=== PATIENT | male | born 2000 | race Caucasian/White ===

== ENCOUNTER 2021-04-04 22:55 | Emergency (ER) | payer OTHER ==
[~2021-04-04] VITALS: Ht 175.3 cm; Wt 99.8 kg
[2021-04-04 23:13] VITALS: BP 124/59
[2021-04-05] MEDS ORDERED: LIDOCAINE MPF 1% 10 MG/ML VIAL INJ ONE (00:10)
[2021-04-05 02:03] VITALS: BP 122/60
== END 2021-04-05 02:03 | disposition home or self-care (01) ==
LOC: MED 22:55
DX: S61.217A Laceration without foreign body of left little finger without damage to nail, initial encounter (principal); J45.909 Unspecified asthma, uncomplicated; W45.8XXA Other foreign body or object entering through skin, initial encounter; Y93.89 Activity, other specified; Y92.89 Other specified places as the place of occurrence of the external cause; Y99.8 Other external cause status
CPT/HCPCS: 12002; 73120; 99283; J2001

== ENCOUNTER 2021-04-07 15:11 | Emergency (ER) | payer OTHER ==
[~2021-04-07] VITALS: Ht 175.3 cm; Wt 99.8 kg
[2021-04-07 15:20] VITALS: BP 133/80
[2021-04-07 15:41] VITALS: BP 133/80
--- NOTE | 2021-04-07 15:42 | NUR ---
Patient discharged with v/s stable. Written and verbal after care instructions given and explained regarding wound care. Patient verbalized understanding. Ambulatory with steady gait. All questions addressed prior to discharge. Advised to follow up with PMD.
== END 2021-04-07 15:42 | disposition home or self-care (01) ==
LOC: MED 15:11
DX: S61.213D Laceration without foreign body of left middle finger without damage to nail, subsequent encounter (principal); S61.217D Laceration without foreign body of left little finger without damage to nail, subsequent encounter; J45.909 Unspecified asthma, uncomplicated; X58.XXXD Exposure to other specified factors, subsequent encounter
CPT/HCPCS: 99281

== ENCOUNTER 2021-04-18 13:47 | Emergency (ER) | payer OTHER ==
[~2021-04-18] VITALS: Ht 175.3 cm; Wt 95.3 kg
[2021-04-18 13:58] VITALS: BP 133/56
--- NOTE | 2021-04-18 14:50 | NUR ---
PT TAKEN TO BED 8.
--- NOTE | 2021-04-18 15:12 | NUR ---
CHRISTOPH Easley is evaluating the patient at bedside.
[2021-04-18 15:41] VITALS: BP 133/56
--- NOTE | 2021-04-18 15:41 | NUR ---
20 Y/O M BIB SELF FROM HOME, PATIENT PRESENTS TO ED WITH LEFT HAND 3RD DIGIT AND 5TH DIGIT STICHES FOR REMOVAL. PT STATES HE HAD STICTHES PLACED 04/05/21, REPORTS NO NEW PAIN, NO INCREASED PAIN, NO DISCHARGE, BLEEDING, EDEMA OR LOSS OF SENSATION AROUND SUTURE SITES. DENIES N/V/D; SKIN IS PINK/WARM/DRY; AAOX4 WITH EVEN AND STEADY GAIT; LUNGS CLEAR BL; HR EVEN AND REGULAR; PT DENIES ANY FEVER, CP, SOB, OR COUGH AT THIS TIME; PATIENT STATES PAIN OF 0/10 AT THIS TIME; VSS; PATIENT POSITIONED FOR COMFORT; HOB ELEVATED; BEDRAILS UP X2; BED DOWN. ER MD MADE AWARE OF PT STATUS. PMH: ASTHMA NKA
--- NOTE | 2021-04-18 15:44 | NUR ---
Patient discharged with v/s stable. Written and verbal after care instructions given and explained. Patient verbalized understanding. Ambulatory with steady gait. All questions addressed prior to discharge. Advised to follow up with PMD.
== END 2021-04-18 15:44 | disposition home or self-care (01) ==
LOC: MED 13:47
DX: S61.213D Laceration without foreign body of left middle finger without damage to nail, subsequent encounter (principal); S61.217D Laceration without foreign body of left little finger without damage to nail, subsequent encounter; J45.909 Unspecified asthma, uncomplicated; X58.XXXD Exposure to other specified factors, subsequent encounter
CPT/HCPCS: 99281

== ENCOUNTER 2021-10-08 12:53 | Emergency (ER) | payer OTHER ==
[~2021-10-08] VITALS: Ht 177.8 cm; Wt 113.4 kg
[2021-10-08 13:12] VITALS: BP 181/103
--- NOTE | 2021-10-08 13:16 | NUR ---
PT C/O LEFT HAND PAIN AND CRAMPING S/P METH USE. PT STATES HAND WILL CRAMP UP INTO A BALL UNCONTROLLABLY . PT APPEARS ANXIOUS.
--- NOTE | 2021-10-08 14:20 | NUR ---
PT REFUSED UPDATE VS CHECK, PT LEFT D/C INFO/PAPER AT BEDSIDE. Patient discharged with v/s stable. Written and verbal after care instructions given and explained. Patient alert, oriented and verbalized understanding of instructions. Ambulatory with steady gait. All questions addressed prior to discharge. ID band removed. Patient advised to follow up with PMD.NO Rx given. Patient educated on indication of medication including possible reaction and side effects. Opportunity to ask questions provided and answered.
== END 2021-10-08 14:20 | disposition home or self-care (01) ==
LOC: MED 12:53
DX: F19.10 Other psychoactive substance abuse, uncomplicated (principal); M79.641 Pain in right hand; M79.642 Pain in left hand; J45.909 Unspecified asthma, uncomplicated; F15.90 Other stimulant use, unspecified, uncomplicated; F12.90 Cannabis use, unspecified, uncomplicated
CPT/HCPCS: 99281